=== PATIENT | female | born 1990 | race African-American/Black ===

== ENCOUNTER 2018-05-26 20:01 | Emergency (ER) | payer MEDICAID | END 2018-05-26 20:42 | disposition home or self-care (01) | LOC: ERS 20:01 | DX: S39.012A Strain of muscle, fascia and tendon of lower back, initial encounter (principal); V43.52XA Car driver injured in collision with other type car in traffic accident, initial encounter | CPT/HCPCS: 99283 ==

== ENCOUNTER 2018-05-28 23:19 | Emergency (ER) | payer MEDICAID, SELFPAY ==
[2018-05-28] MEDS ORDERED: Ketorolac Tromethamine 60 MG/2 ML VIAL IM SCH (23:45)
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
[2018-05-29] MEDS ORDERED: Lidocaine 5% Patch TD SCH (09:00)
== END 2018-05-29 00:20 | disposition home or self-care (01) ==
LOC: ERS 23:19
DX: S39.012A Strain of muscle, fascia and tendon of lower back, initial encounter (principal); Z79.899 Other long term (current) drug therapy; V49.60XA Unspecified car occupant injured in collision with unspecified motor vehicles in traffic accident, initial encounter
CPT/HCPCS: 72100; 96372; J1885

== ENCOUNTER 2019-07-02 12:15 | Emergency (ER) | payer SELFPAY ==
[2019-07-02] MEDS ORDERED: Acetaminophen 325 MG TAB ONE (13:02)
[2019-07-02 13:29] LABS: Bilirubin Negative (Negative); Blood, Urine Negative (Negative); Clarity Clear (Clear); Glucose, Urine (Dipstick) Normal (Negative); Leukocyte Negative Leu/uL (Negative); Nitrite Negative (Negative); Protein, Urine (Dipstick) Negative (Neg-Trace); Urobilinogen Normal mg/dL (Less than 2)
[2019-07-02 13:33] LABS: Pregnancy Test - Urine (BHCG) Negative (Negative); Pregu Control Background? CLEAR/WHITE (CLR/WHITE); Pregu Control Bar Appear? YES (CONTROL BAR); Specific Gravity 1.021 (1.002-1.036)
[2019-07-06 00:59] LABS: Chlamydia by PCR Not Detected (NotDetected); GC by PCR Not Detected (NotDetected)
== END 2019-07-02 14:11 | disposition home or self-care (01) ==
LOC: ERS 12:15
DX: N89.8 Other specified noninflammatory disorders of vagina (principal)
CPT/HCPCS: 81003; 81025; 87480; 87491; 87510; 87591; 87660; 99283

== ENCOUNTER 2019-07-30 11:40 | Emergency (ER) | payer SELFPAY ==
--- NOTE | 2019-07-30 12:34 | RAD ---
LEFT FOOT THREE VIEWS: HISTORY: Left foot pain following an injury to the fifth toe. FINDINGS: Oblique, minimally displaced and minimally laterally angulated fracture of the proximal phalanx of th e fifth toe. The remainder of the foot appears unremarkable. IMPRESSION: Minimally displaced oblique fracture of proximal phalanx fifth toe with some lateral angulation. POS: TPC
== END 2019-07-30 13:47 | disposition home or self-care (01) ==
LOC: ERS 11:40
DX: S92.512A Displaced fracture of proximal phalanx of left lesser toe(s), initial encounter for closed fracture (principal); W10.9XXA Fall (on) (from) unspecified stairs and steps, initial encounter

== ENCOUNTER 2021-05-05 18:24 | Inpatient (IN) | payer SELFPAY ==
[2021-05-05] MEDS ORDERED: Lidocaine 1% w/Epinephrine 1:100K 20 ML VIAL ONE (19:34)
[2021-05-05] MEDS ORDERED: Morphine 4 MG/ML VIAL ONE (19:42)
[2021-05-05] MEDS ORDERED: Acetaminophen 500 MG TAB ONE (19:43)
[2021-05-05] MEDS ORDERED: Cefepime 2 GM VIAL ONE (20:39)
[2021-05-05] MEDS ORDERED: Clindamycin/D5W 600 mg/50 ml Premix Bag ONE (20:39)
[2021-05-05] MEDS ORDERED: Vancomycin HCl 1.25 GM in Sodium Chloride 0.9% 250 ML 250 ML IVPB SCH (21:00)
[2021-05-05 21:44] LABS: Hemoglobin 11.6 g/dL (12.0-16.0); Mean Corpuscular HGB CONC 31.6 g/dL (32.0-36.0); Mean Corpuscular Volume 88.6 fL (78.0-98.0); Mean Platelet Volume 8.6 fL (7.4-10.4); Platelet Count 166 thou/uL (130-400); RBC Distribution Width 12.8 % (11.5-14.5); Red Blood Cell (RBC) Count 4.16 mill/uL (4.20-5.40); White Blood Cell (WBC) Count 12.4 thou/uL (4.8-10.8)
[2021-05-05 21:49] LABS: Pregnancy Test - Urine (BHCG) Negative (Negative); Pregu Control Background? CLEAR/WHITE (CLR/WHITE); Pregu Control Bar Appear? YES (CONTROL BAR); Specific Gravity 1.019 (1.002-1.036)
[2021-05-05 22:02] LABS: ALT (SGPT) 12 U/L (8-55); AST (SGOT) 16 U/L (5-34); Albumin 3.1 g/dL (3.5-5.0); Alkaline Phosphatase 62 U/L (40-110); Anion Gap 10 mmol/L (10-20); BUN (Urea Nitrogen) 6 mg/dL (7.0-18.7); Bilirubin, Total 1.2 mg/dL (0.2-1.2); Calc. Creatinine Clearance 0 mL/min (70-130); Calcium 7.5 mg/dL (7.8-10.44); Carbon Dioxide 26 mmol/L (22-29); Chloride 106 mmol/L (98-107); Globulin 3.2 g/dL (2.4-3.5); Glucose 103 mg/dL (70-105); Potassium 3.5 mmol/L (3.5-5.1); Protein, Total 6.3 g/dL (6.0-8.3); Sodium 138 mmol/L (136-145)
[2021-05-05 22:07] LABS: Band 5 % (5-11); Hypochromia SLIGHT = 6-15 cells (100X) (0-5/hpf); Lymphocytes 14 % (21-51); MDiff Complete? YES; Monocytes 13 % (0-10); Neutrophil 68 % (42-75); Platelet Morphology Comment Appears Adequate
[2021-05-05 22:11] LABS: SARS-CoV-2 NAA Rapid Test Not Detected (NotDetected)
[2021-05-05] MEDS ORDERED: diphenhydrAMINE 50 MG/ML VIAL ONE (23:11)
[2021-05-05] MEDS ORDERED: methylPREDNISolone Sod Succ/PF 125 MG/2 ML VIAL ONE (23:22)
[2021-05-05] MEDS ORDERED: Famotidine/PF 20 mg/2ml Vial ONE (23:22)
[2021-05-06 00:37] VITALS: BMI 26.6
[2021-05-06] MEDS ORDERED: Sodium Chloride 0.9% 1,000 ML IV SCH (01:15)
[2021-05-06] MEDS ORDERED: Acetaminophen 325 MG TAB PO PRN (03:20)
[2021-05-06] MEDS ORDERED: Ondansetron PF 4 MG/2 ML Vial IVP PRN (03:20)
[2021-05-06] MEDS: HYDROcodone/Acetaminophen 5/325 mg Tablet PO PRN ×3 (04:29→16:22)
[2021-05-06] MEDS: Linezolid 600 MG in Premix Bag 1 BAG IVPB SCH ×2 (04:30→18:12)
[2021-05-06] MEDS: Sodium Chloride 0.9% 1,000 ML IV SCH ×3 (04:30→23:59)
[2021-05-06 07:38] LABS: Hemoglobin 12.2 g/dL (12.0-16.0); Mean Corpuscular HGB CONC 33.2 g/dL (32.0-36.0); Mean Corpuscular Hemoglobin 29.6 pg (27.0-31.0); Mean Corpuscular Volume 89.1 fL (78.0-98.0); Mean Platelet Volume 8.6 fL (7.4-10.4); Platelet Count 163 thou/uL (130-400); RBC Distribution Width 12.7 % (11.5-14.5); Red Blood Cell (RBC) Count 4.14 mill/uL (4.20-5.40)
[2021-05-06 07:45] LABS: Anion Gap 9 mmol/L (10-20); BUN (Urea Nitrogen) 6 mg/dL (7.0-18.7); Calc. Creatinine Clearance 125 mL/min (70-130); Carbon Dioxide 25 mmol/L (22-29); Chloride 106 mmol/L (98-107); Glucose 183 mg/dL (70-105); Potassium 4.5 mmol/L (3.5-5.1); Sodium 135 mmol/L (136-145)
[2021-05-06 10:16] LABS: Band 25 % (5-11); Lymphocytes 10 % (21-51); MDiff Complete? YES; Monocytes 1 % (0-10); Neutrophil 64 % (42-75); Platelet Morphology Comment Appears Adequate; RBC Morphology Normal
[2021-05-07 04:42] LABS: Anion Gap 10 mmol/L (10-20); BUN (Urea Nitrogen) 5 mg/dL (7.0-18.7); Calc. Creatinine Clearance 129 mL/min (70-130); Calcium 7.7 mg/dL (7.8-10.44); Carbon Dioxide 25 mmol/L (22-29); Chloride 109 mmol/L (98-107); Glucose 90 mg/dL (70-105); Potassium 3.9 mmol/L (3.5-5.1); Sodium 140 mmol/L (136-145)
[2021-05-07 04:46] LABS: #Lymphocytes 1.2 thou/uL (1.20-3.40); #Neutrophils 9.6 thou/uL (1.40-6.50); %Basophils 0.1 % (0.0-1.0); %Eosinophils 0.4 % (0.0-10.0); %Lymphocytes 9.9 % (21.0-51.0); %Monocytes 8.6 % (0.0-10.0); %Neutrophils 81.1 % (42.0-75.0); Hemoglobin 10.5 g/dL (12.0-16.0); Mean Corpuscular HGB CONC 32.7 g/dL (32.0-36.0); Mean Corpuscular Hemoglobin 29.1 pg (27.0-31.0); Mean Corpuscular Volume 88.9 fL (78.0-98.0); Mean Platelet Volume 8.9 fL (7.4-10.4); Platelet Count 164 thou/uL (130-400); RBC Distribution Width 12.7 % (11.5-14.5); Red Blood Cell (RBC) Count 3.61 mill/uL (4.20-5.40); White Blood Cell (WBC) Count 11.9 thou/uL (4.8-10.8)
[2021-05-07] MEDS: Linezolid 600 MG in Premix Bag 1 BAG IVPB SCH ×2 (05:29→16:27)
[2021-05-07] MEDS: Sodium Chloride 0.9% 1,000 ML IV SCH (05:30)
[2021-05-07] MEDS: Enoxaparin Sodium 40 MG/0.4 ML SYRINGE SC SCH (08:12)
[2021-05-07] MEDS: HYDROcodone/Acetaminophen 5/325 mg Tablet PO PRN ×2 (08:56)
[2021-05-08] MEDS: Linezolid 600 MG in Premix Bag 1 BAG IVPB SCH (05:30)
[2021-05-08 05:44] LABS: #Basophils 0.1 thou/uL (0.0-0.2); #Eosinphils 0.1 thou/uL (0.0-0.7); #Lymphocytes 1.5 thou/uL (1.20-3.40); #Monocytes 0.7 thou/uL (0.11-0.59); #Neutrophils 6.4 thou/uL (1.40-6.50); %Basophils 0.8 % (0.0-1.0); %Eosinophils 0.7 % (0.0-10.0); %Lymphocytes 17.3 % (21.0-51.0); %Monocytes 8.4 % (0.0-10.0); %Neutrophils 72.9 % (42.0-75.0); Hemoglobin 11.1 g/dL (12.0-16.0); Mean Corpuscular HGB CONC 33.7 g/dL (32.0-36.0); Mean Corpuscular Hemoglobin 29.8 pg (27.0-31.0); Mean Corpuscular Volume 88.5 fL (78.0-98.0); Mean Platelet Volume 8.5 fL (7.4-10.4); Platelet Count 193 thou/uL (130-400); RBC Distribution Width 12.8 % (11.5-14.5); Red Blood Cell (RBC) Count 3.74 mill/uL (4.20-5.40); White Blood Cell (WBC) Count 8.8 thou/uL (4.8-10.8)
[2021-05-08 06:05] LABS: Anion Gap 11 mmol/L (10-20); BUN (Urea Nitrogen) 6 mg/dL (7.0-18.7); Calc. Creatinine Clearance 122 mL/min (70-130); Calcium 7.9 mg/dL (7.8-10.44); Carbon Dioxide 26 mmol/L (22-29); Chloride 107 mmol/L (98-107); Glucose 88 mg/dL (70-105); Potassium 3.7 mmol/L (3.5-5.1); Sodium 140 mmol/L (136-145)
[2021-05-08] MEDS: Enoxaparin Sodium 40 MG/0.4 ML SYRINGE SC SCH (08:16)
[2021-05-08] MEDS: HYDROcodone/Acetaminophen 5/325 mg Tablet PO PRN (08:16)
[2021-05-08 08:23] VITALS: BP 122/87; TEMP 97.9
== END 2021-05-08 14:14 | disposition home or self-care (01) | DRG 854 ==
LOC: ERS 18:24 → ERHOLD 22:11 → ONC 23:38 → OBSVTOIN 05-06 16:11
PROVIDERS: ADMIT Internal Medicine; ATTEND Internal Medicine
PROC: 0J990ZZ Drainage of Buttock Subcutaneous Tissue and Fascia, Open Approach (ICD-10-PCS; principal; 2021-05-06)
DX: A41.9 Sepsis, unspecified organism (principal); L05.01 Pilonidal cyst with abscess; E87.1 Hypo-osmolality and hyponatremia; E44.0 Moderate protein-calorie malnutrition; Z20.822 Contact with and (suspected) exposure to COVID-19; I95.9 Hypotension, unspecified; D64.9 Anemia, unspecified; Z68.26 Body mass index [BMI] 26.0-26.9, adult
CPT/HCPCS: 36415; 80048; 80053; 81025; 83605; 85025; 87040; 87086; J0692; J1200; J1650; J2020; J2270; J2930; J3370; J3490; J7050; S0028; U0002

== ENCOUNTER 2021-08-11 11:03 | Outpatient (CLI) | payer BC, MEDICAID | END 2021-08-11 11:04 | disposition home or self-care (01) | LOC: BICULT 11:03 | PROVIDERS: ATTEND Nurse Practitioner Women's Health | DX: R10.2 Pelvic and perineal pain (principal) | CPT/HCPCS: 76856 ==

== ENCOUNTER 2022-02-03 14:18 | Emergency (ER) | payer MEDICAID | END 2022-02-03 15:15 | disposition left against medical advice (07) | LOC: ERS 14:18 | DX: Z53.21 Procedure and treatment not carried out due to patient leaving prior to being seen by health care provider (principal) ==

== ENCOUNTER 2022-02-12 17:41 | Emergency (ER) | payer SELFPAY ==
[2022-02-12 19:57] LABS: Pregnancy Test - Urine (BHCG) Negative (Negative); Pregu Control Background? CLEAR/WHITE (CLR/WHITE); Pregu Control Bar Appear? YES (CONTROL BAR); Specific Gravity 1.018 (1.002-1.036)
[2022-02-12 21:26] LABS: Bilirubin Negative (Negative); Blood, Urine Small (Negative); Glucose, Urine (Dipstick) Negative (Negative); Ketone, Urine Negative (Negative); Leukocyte Negative (Negative); Nitrite Negative (Negative); Protein, Urine (Dipstick) Negative (Neg-Trace); Specific Gravity, Urine 1.015 (1.005-1.030); pH, Urine 6.5 (5.0-9.0)
[2022-02-12 21:27] LABS: Clarity Clear (Clear)
[2022-02-12 21:50] LABS: RBC/HPF 0-3 HPF (0-3); Squamous Epithelial 0-3 HPF (0-3); WBC/HPF 0-3 HPF (0-3)
== END 2022-02-12 21:54 | disposition home or self-care (01) ==
LOC: ERS 17:41
DX: R10.30 Lower abdominal pain, unspecified (principal)
CPT/HCPCS: 81003; 81015; 81025; 99284

== ENCOUNTER 2022-05-21 12:15 | Emergency (ER) | payer SELFPAY | END 2022-05-21 13:13 | disposition home or self-care (01) | LOC: ERS 12:15 | DX: N76.4 Abscess of vulva (principal) | CPT/HCPCS: 99282 ==

== ENCOUNTER 2023-06-21 14:53 | Emergency (ER) | payer BC | END 2023-06-21 16:40 | disposition home or self-care (01) | LOC: ERS 14:53 | DX: K14.6 Glossodynia (principal); R10.9 Unspecified abdominal pain; N95.1 Menopausal and female climacteric states | CPT/HCPCS: 99283 ==

== ENCOUNTER 2023-07-14 10:52 | Outpatient (CLI) | payer BC | END 2023-07-14 10:53 | disposition home or self-care (01) | LOC: BICRAD 10:52 | PROVIDERS: ATTEND Nurse Practitioner Family | DX: M54.50 Low back pain, unspecified (principal); M43.17 Spondylolisthesis, lumbosacral region; M41.9 Scoliosis, unspecified; M51.34 Other intervertebral disc degeneration, thoracic region | CPT/HCPCS: 72072; 72100 ==

== ENCOUNTER 2024-10-10 20:20 | Emergency (ER) | payer BC, MEDICAID, SELFPAY ==
[2024-10-10 20:55] LABS: #Basophils 0.03 10x3/uL (0.0-0.2); %Basophils 0.4 % (0.0-1.0); %Eosinophils 1.3 % (0.0-10.0); %Lymphocytes 30.2 % (21.0-51.0); %Monocytes 7.1 % (0.0-10.0); %Neutrophils 60.9 % (42.0-75.0); Hematocrit 32.8 % (36.0-47.0); Hemoglobin 11.3 g/dL (12.0-16.0); Mean Corpuscular HGB CONC 34.5 g/dL (32.0-36.0); Mean Corpuscular Hemoglobin 28.3 pg (27.0-31.0); Mean Platelet Volume 10.4 fL (7.4-10.4); Platelet Count 172 10x3/uL (130-400); RBC Distribution Width 12.8 % (11.5-14.5)
[2024-10-10 21:23] LABS: ALT (SGPT) 14 U/L (Less than 34); AST (SGOT) 29 U/L (11-34); Albumin 3.9 g/dL (3.1-4.5); Alkaline Phosphatase 47 U/L (40-110); Anion Gap 10 mmol/L (10-20); BUN (Urea Nitrogen) 11 mg/dL (7.0-18.7); Bilirubin, Total 0.3 mg/dL (0.3-1.2); Calc. Creatinine Clearance 0 mL/min (70-130); Carbon Dioxide 20 mmol/L (22-29); Chloride 110 mmol/L (98-107); Estimated GFR 101; Globulin 4.2 g/dL (2.4-3.5); Glucose 85 mg/dL (70-105); Potassium 3.9 mmol/L (3.5-5.1); Protein, Total 8.1 g/dL (6.0-8.3); Sodium 136 mmol/L (136-145)
[2024-10-10] MEDS ORDERED: Dexamethasone 10 MG/ML VIAL ONE (23:11)
== END 2024-10-10 23:36 | disposition home or self-care (01) ==
LOC: ERS 20:20
DX: M79.18 Myalgia, other site (principal); L50.1 Idiopathic urticaria; F17.290 Nicotine dependence, other tobacco product, uncomplicated; Z79.899 Other long term (current) drug therapy
CPT/HCPCS: 36415; 80053; 82550; 83735; 85025; 96360; J1100

== ENCOUNTER 2025-06-05 22:15 | Emergency (ER) | payer BC, SELFPAY ==
[2025-06-05 22:50] LABS: Bacteria/HPF None Seen HPF (None Seen); CAUTI Indications for Culture Pelvic or flank pain; Glucose, Urine (Dipstick) Normal (Negative); Leukocyte Negative Leu/uL (Negative); Protein, Urine (Dipstick) Negative (Neg-Trace); RBC/HPF 0-3 HPF (0-3); Specific Gravity, Urine 1.016 (1.002-1.036); WBC/HPF 0-3 HPF (0-3)
[2025-06-05 22:52] LABS: Urine Culture Reflex No No
[2025-06-05 23:08] LABS: Pregnancy Test - Urine (BHCG) Negative (Negative); Pregu Control Background? CLEAR/WHITE (CLR/WHITE); Pregu Control Bar Appear? YES (CONTROL BAR)
[2025-06-06 05:15] LABS: Chlam.trachomatis by PCR,Urine Not Detected (NotDetected); GC N.gonorrhoeae PCR,UrineVOID Not Detected (NotDetected)
== END 2025-06-05 23:06 | disposition home or self-care (01) ==
LOC: ERS 22:15
DX: N30.01 Acute cystitis with hematuria (principal)
CPT/HCPCS: 81001; 81025; 87086; 87491; 87591; 99283